=== PATIENT | male | born 2000 | race Hispanic/Latino ===

== ENCOUNTER 2020-02-16 21:59 | Emergency (ER) | payer OTHER ==
[2020-02-17 06:30] LABS: SARS-CoV-2 MS2 Positive; SARS-CoV-2 N Gene Positive; SARS-CoV-2 S Gene Positive; SARS-CoV-2 by NAA DETECTED (NotDetected); SARS-CoV-2 orf1ab Positive
== END 2020-02-16 23:05 | disposition home or self-care (01) ==
LOC: ERS 21:59
DX: U07.1 COVID-19 (principal)
CPT/HCPCS: 87635; 99283; U0003